=== PATIENT | male | born 1950 | race Caucasian/White ===

== ENCOUNTER 2017-02-05 08:33 | Outpatient (CLI) | payer OTHER ==
--- NOTE | 2017-02-05 10:35 | DIAGNOSTIC IMAGING REPORT ---
PROCEDURE: MR LOWER EXT JOINT WO CONT-RT INDICATION: RT KNEE PAIN, initial encounter TECHNIQUE: T1 and STIR sagittal, axial, coronal and coronal-oblique images. COMPARISON: Right knee x-ray 08/07/2016. FINDINGS: Minor spur formation of the patellofemoral compartment. Normal cruciate and collateral ligaments. Medial meniscus posterior horn flap tear. Mild chondromalacia of the medial compartment. Normal lateral meniscus. Patellar laxity and tendinosis. Mild chondromalacia patella. Slightly increased joint fluid. No popliteal cyst. IMPRESSION: 1. Medial meniscus posterior horn flap tear with mild medial compartment chondromalacia 2. Mild chondromalacia patella 3. Patellar tendon laxity and tendinosis
== END 2017-02-05 23:00 ==
LOC: MRI SRH 08:33
DX: S83.241A Other tear of medial meniscus, current injury, right knee, initial encounter (principal); M22.41 Chondromalacia patellae, right knee; M76.51 Patellar tendinitis, right knee